=== PATIENT | female | born 1950 | race Caucasian/White ===

== ENCOUNTER 2017-01-17 18:16 | Inpatient (IN) | payer MEDICARE, OTHER ==
[~2017-01-17] VITALS: Ht 170.2 cm; Wt 113.4 kg
[2017-01-17] MEDS ORDERED: SODIUM CHLORIDE FLUSH 10ML SYR IVF ONE (19:00)
[2017-01-17 19:28] LABS: BLOOD UREA NITROGEN 17 mg/dL (7-18)
[2017-01-17] MEDS ORDERED: PARO40TA3 PO (21:27)
[2017-01-17] MEDS ORDERED: LEVO150T PO (21:28)
[2017-01-17] MEDS ORDERED: MAGNESIUM SULFATE PMX 2GM/50ML 50 ML IV ONE (21:30)
[2017-01-17] MEDS ORDERED: HYDROcodone/APAP 5/325 TABLET ONE (21:48)
[2017-01-17] MEDS: HYDROcodone/APAP 5/325 TABLET PO PRN (21:52)
[2017-01-17] MEDS ORDERED: BISACODYL 10 MG SUPP PR PRN (22:00)
[2017-01-17] MEDS ORDERED: ONDANSETRON 2MG/ML, 2ML IVPush PRN (22:00)
[2017-01-17] MEDS ORDERED: POLYETHYLENE GLYCOL 17 GM PACKET PO PRN (22:00)
[2017-01-17] MEDS ORDERED: DOCUSATE 100 MG CAPSULE PO PRN (22:00)
[2017-01-17] MEDS ORDERED: PROMETHAZINE 25 MG/ML, 1ML IM PRN (22:00)
[2017-01-17] MEDS ORDERED: ENALAPRILAT 1.25 MG/ML, 2ML IVPush PRN (22:00)
[2017-01-17 22:39] VITALS: BP 153/80
[2017-01-17 22:40] VITALS: BP 153/80
[2017-01-18 01:00] VITALS: BP 133/73
[2017-01-18] MEDS: HYDROcodone/APAP 5/325 TABLET PO PRN ×5 (01:55→20:11)
[2017-01-18] MEDS: LEVOTHYROXINE 150 MCG TABLET PO SCH (06:00)
[2017-01-18 06:50] LABS: ASPARTATE AMINO TRANSFERASE 22 U/L (15-37); BLOOD UREA NITROGEN 17 mg/dL (7-18)
[2017-01-18 07:59] VITALS: BP 125/68
[2017-01-18] MEDS: ENOXAPARIN 40 MG/0.4 ML SQ SCH (09:09)
[2017-01-18] MEDS: SENNA/DOCUSATE TABLET PO SCH (09:09)
[2017-01-18] MEDS: PAROXETINE 20 MG TABLET PO SCH (09:09)
[2017-01-18 13:27] VITALS: BP 125/70
[2017-01-18] MEDS ORDERED: OMNIPAQUE 350 MG/ML, 150 ML BOTTLE ONE (15:05)
[2017-01-18] MEDS ORDERED: FUROSEMIDE 40 MG/4 ML IV ONE (17:00)
[2017-01-18] MEDS: CEFTRIAXONE PMX 2GM/50ML 50 ML IV SCH (17:32)
[2017-01-18] MEDS: AZITHROMYCIN 500 MG in SODIUM CHLORIDE 0.9% 250 ML IV SCH (18:29)
[2017-01-18 19:09] VITALS: BP 139/76
[2017-01-19] MEDS: HYDROcodone/APAP 5/325 TABLET PO PRN ×6 (00:16→21:46)
[2017-01-19 01:21] VITALS: BP 133/81
[2017-01-19 05:41] LABS: BLOOD UREA NITROGEN 21 mg/dL (7-18)
[2017-01-19] MEDS: LEVOTHYROXINE 150 MCG TABLET PO SCH (05:48)
[2017-01-19 07:17] VITALS: BP 133/77
[2017-01-19] MEDS: PAROXETINE 20 MG TABLET PO SCH (09:12)
[2017-01-19] MEDS: ENOXAPARIN 40 MG/0.4 ML SQ SCH (09:12)
[2017-01-19] MEDS: SENNA/DOCUSATE TABLET PO SCH (09:13)
[2017-01-19 14:35] VITALS: BP 112/69
[2017-01-19] MEDS: CEFTRIAXONE PMX 2GM/50ML 50 ML IV SCH (17:36)
[2017-01-19] MEDS: AZITHROMYCIN 500 MG in SODIUM CHLORIDE 0.9% 250 ML IV SCH (18:22)
[2017-01-19 20:00] VITALS: BP 120/72
[2017-01-20] MEDS: HYDROcodone/APAP 5/325 TABLET PO PRN ×5 (01:52→19:55)
[2017-01-20 02:00] VITALS: BP 133/82
[2017-01-20 06:03] LABS: BLOOD UREA NITROGEN 25 mg/dL (7-18)
[2017-01-20] MEDS: LEVOTHYROXINE 150 MCG TABLET PO SCH (06:15)
[2017-01-20 06:47] LABS: ANISOCYTOSIS 1+
[2017-01-20 06:48] LABS: GIANT PLATELETS 1+; LARGE PLATELETS 1+
[2017-01-20 07:45] VITALS: BP 120/61
[2017-01-20] MEDS: PAROXETINE 20 MG TABLET PO SCH (08:35)
[2017-01-20] MEDS: SENNA/DOCUSATE TABLET PO SCH (08:35)
[2017-01-20] MEDS: ENOXAPARIN 40 MG/0.4 ML SQ SCH (10:09)
[2017-01-20 12:35] VITALS: BP 119/61
[2017-01-20] MEDS: CEFTRIAXONE PMX 2GM/50ML 50 ML IV SCH (16:55)
[2017-01-20] MEDS: AZITHROMYCIN 500 MG in SODIUM CHLORIDE 0.9% 250 ML IV SCH (18:08)
[2017-01-20 19:49] VITALS: BP 130/78
[2017-01-21] MEDS: HYDROcodone/APAP 5/325 TABLET PO PRN ×5 (00:33→21:14)
[2017-01-21 00:49] VITALS: BP 143/78
[2017-01-21] MEDS: LEVOTHYROXINE 150 MCG TABLET PO SCH (06:07)
[2017-01-21 06:55] VITALS: BP 122/70
[2017-01-21] MEDS: PAROXETINE 20 MG TABLET PO SCH (09:09)
[2017-01-21] MEDS: SENNA/DOCUSATE TABLET PO SCH (09:09)
[2017-01-21] MEDS: ENOXAPARIN 40 MG/0.4 ML SQ SCH (09:09)
[2017-01-21 12:42] VITALS: BP 103/60
[2017-01-21] MEDS: CEFTRIAXONE PMX 2GM/50ML 50 ML IV SCH (16:16)
[2017-01-21] MEDS: AZITHROMYCIN 500 MG in SODIUM CHLORIDE 0.9% 250 ML IV SCH (18:06)
[2017-01-21] MEDS ORDERED: POLYETHYLENE GLYCOL 17 GM PACKET PO PRN (19:30)
[2017-01-21] MEDS ORDERED: DOCUSATE 100 MG CAPSULE PO PRN (19:30)
[2017-01-21] MEDS ORDERED: BISACODYL 10 MG SUPP PR PRN (19:30)
[2017-01-21 19:48] VITALS: BP 111/69
[2017-01-22 00:20] VITALS: BP 128/75
[2017-01-22] MEDS: HYDROcodone/APAP 5/325 TABLET PO PRN ×4 (06:08→22:44)
[2017-01-22] MEDS: LEVOTHYROXINE 150 MCG TABLET PO SCH (06:08)
[2017-01-22] MEDS: POTASSIUM CHLORIDE 10 MEQ TABLET.ER PO SCH (09:56)
[2017-01-22] MEDS: SENNA/DOCUSATE TABLET PO SCH (09:57)
[2017-01-22] MEDS: FUROSEMIDE 20 MG TABLET PO SCH (09:57)
[2017-01-22] MEDS: PAROXETINE 20 MG TABLET PO SCH (09:57)
[2017-01-22] MEDS: ENOXAPARIN 40 MG/0.4 ML SQ SCH (09:58)
[2017-01-22 12:26] VITALS: BP 129/77
[2017-01-22] MEDS: CEFTRIAXONE PMX 2GM/50ML 50 ML IV SCH (17:29)
[2017-01-22] MEDS: AZITHROMYCIN 500 MG in SODIUM CHLORIDE 0.9% 250 ML IV SCH (18:15)
[2017-01-22 19:05] VITALS: BP 107/61
[2017-01-23 01:00] VITALS: BP 120/74
[2017-01-23] MEDS: HYDROcodone/APAP 5/325 TABLET PO PRN ×4 (05:09→23:32)
[2017-01-23] MEDS: LEVOTHYROXINE 150 MCG TABLET PO SCH (05:09)
[2017-01-23 05:49] LABS: BLOOD UREA NITROGEN 12 mg/dL (7-18)
[2017-01-23 07:10] VITALS: BP 151/85
[2017-01-23] MEDS: SENNA/DOCUSATE TABLET PO SCH (08:14)
[2017-01-23] MEDS: FUROSEMIDE 20 MG TABLET PO SCH (08:14)
[2017-01-23] MEDS: POTASSIUM CHLORIDE 10 MEQ TABLET.ER PO SCH (08:14)
[2017-01-23] MEDS: PAROXETINE 20 MG TABLET PO SCH (08:14)
[2017-01-23] MEDS: ENOXAPARIN 40 MG/0.4 ML SQ SCH (10:00)
[2017-01-23 12:38] VITALS: BP 121/77
[2017-01-23] MEDS: CEFTRIAXONE PMX 2GM/50ML 50 ML IV SCH (17:25)
[2017-01-23] MEDS: AZITHROMYCIN 500 MG in SODIUM CHLORIDE 0.9% 250 ML IV SCH (18:17)
[2017-01-23 19:10] VITALS: BP 117/73
[2017-01-24 01:00] VITALS: BP 137/76
[2017-01-24] MEDS: HYDROcodone/APAP 5/325 TABLET PO PRN ×2 (05:34→10:29)
[2017-01-24] MEDS: LEVOTHYROXINE 150 MCG TABLET PO SCH (05:34)
[2017-01-24 07:32] VITALS: BP 127/72
[2017-01-24] MEDS ORDERED: LACT1CAP24 PO (07:39)
[2017-01-24] MEDS ORDERED: POTA10TA5 PO (07:39)
[2017-01-24] MEDS ORDERED: CEFD300C37 PO (07:39)
[2017-01-24] MEDS ORDERED: HYDR-3240 PO (07:39)
[2017-01-24] MEDS ORDERED: POLY17PO5 PO (07:39)
[2017-01-24] MEDS ORDERED: AZIT500T PO (07:39)
[2017-01-24] MEDS ORDERED: FURO20TA3 PO (07:39)
[2017-01-24] MEDS ORDERED: ALPR0.25 PO (07:45)
[2017-01-24] MEDS: FUROSEMIDE 20 MG TABLET PO SCH (09:00)
[2017-01-24] MEDS: SENNA/DOCUSATE TABLET PO SCH (09:48)
[2017-01-24] MEDS: POTASSIUM CHLORIDE 10 MEQ TABLET.ER PO SCH (09:48)
[2017-01-24] MEDS: PAROXETINE 20 MG TABLET PO SCH (09:49)
[2017-01-24] MEDS: ENOXAPARIN 40 MG/0.4 ML SQ SCH (10:00)
== END 2017-01-24 11:30 | disposition home or self-care (01) | DRG 871 ==
LOC: ED 20:22 → EDIP 21:12 → 4EST 22:21 → DCLOUNGE 01-24 10:41
PROVIDERS: ADMIT Internal Medicine; ATTEND Internal Medicine
DX: A41.9 Sepsis, unspecified organism (principal); J18.9 Pneumonia, unspecified organism; I50.33 Acute on chronic diastolic (congestive) heart failure; J96.01 Acute respiratory failure with hypoxia; E03.9 Hypothyroidism, unspecified; F32.9 Major depressive disorder, single episode, unspecified; I11.0 Hypertensive heart disease with heart failure; F41.9 Anxiety disorder, unspecified; G56.81 Other specified mononeuropathies of right upper limb; I45.81 Long QT syndrome; Z90.722 Acquired absence of ovaries, bilateral; G58.8 Other specified mononeuropathies
CPT/HCPCS: 36415; 71010; 71275; 80048; 80053; 81003; 83735; 83880; 84443; 85025; 87040; 93005; 93306; 99285; J0456; J0696; J1650; J1940; Q9967; J3475; J7050

== ENCOUNTER 2018-01-29 13:39 | Inpatient (IN) | payer MEDICARE, OTHER ==
[~2018-01-29] VITALS: Ht 171.4 cm; Wt 137.8 kg
[~2018-01-29 13:39] MED LIST: ALPR0.25 PO; AZIT500T PO; CEFD300C37 PO; FURO20TA3 PO; HYDR-3240 PO; LACT1CAP24 PO; LEVO150T PO; PARO40TA3 PO; POLY17PO5 PO; POTA10TA5 PO
[2018-01-29] MEDS ORDERED: SODIUM CHLORIDE 0.9% 1,000ML IVBOLUS ONE ×3 (14:30→23:30)
[2018-01-29 14:32] LABS: ALBUMIN 3.7 g/dL (3.4-5.0); ANION GAP 11 mmol/L (5-15); CALCIUM 8.7 mg/dL (8.5-10.1); CHLORIDE 105 mmol/L (98-107); CREATININE 2.96 mg/dL (0.55-1.02)
[2018-01-29 14:36] LABS: TROPONIN I < 0.015 ng/mL (0.000-0.045)
[2018-01-29 14:37] LABS: INTERNATIONAL NORMALIZED RATIO 1.88 (0.93-1.1); PROTHROMBIN TIME 19.3 Seconds (9.6-11.5)
[2018-01-29] MEDS ORDERED: AMIO200T42 PO (15:47)
[2018-01-29] MEDS ORDERED: LEVO175T2 PO (15:47)
[2018-01-29] MEDS ORDERED: LOSA25TA5 PO (15:47)
[2018-01-29] MEDS ORDERED: PARO20TA98 PO (15:47)
[2018-01-29] MEDS ORDERED: OXYM15SP8 NAS (15:47)
[2018-01-29] MEDS ORDERED: APIX5TAB PO (16:00)
[2018-01-29] MEDS ORDERED: METO100T5 PO (16:00)
[2018-01-29] MEDS ORDERED: VANC125C2 PO (16:00)
[2018-01-29 16:04] LABS: MEAN CORPUSCULAR HEMOGLOBIN 26.9 pg (27.0-34.8); MEAN CORPUSCULAR HGB CONC 32.2 g/dL (32.4-35.8); MEAN CORPUSCULAR VOLUME 83.4 fL (80-100); RED BLOOD COUNT 3.25 x10^6/uL (3.82-5.3); RED CELL DISTRIBUTION WIDTH 23.6 % (9.6-15.2)
[2018-01-29] MEDS ORDERED: HYDR25TA11 PO (16:04)
[2018-01-29 16:06] LABS: MD YES
[2018-01-29 16:13] LABS: BAND#(MANUAL) 0.36 x10^3/uL; BANDS%(MANUAL) 2 % (0-7); EOS#(MANUAL) 0.36 x10^3/uL (0.0-0.4); EOS% (MANUAL) 2 % (1-7); SEG#(MANUAL) 15.48 x10^3/uL (1.8-6.8); SEGS% (MANUAL) 86 % (42-75)
[2018-01-29 16:19] LABS: LYMPHS% (MANUAL) 5 % (22-44)
[2018-01-29] MEDS ORDERED: DOPAMINE/D5W PMX 250 ML IV PRN ×2 (16:20→17:00)
[2018-01-29 16:22] LABS: ANISOCYTOSIS 1+; HYPOCHROMIA 1+; MICROCYTOSIS 1+; OVALOCYTES 1+; POLYCHROMASIA 1+
[2018-01-29 16:23] LABS: ACANTHOCYTES 1+; TOXIC GRAN 1+
[2018-01-29 16:27] LABS: MEAN PLATELET VOLUME 14.5 fL (7.4-10.4); PLATELET COUNT 177 x10^3/uL (130-400)
[2018-01-29 16:28] LABS: <PLATELET ESTIMATE> INCREASED; GIANT PLATELETS 1+; LARGE PLATELETS 1+
[2018-01-29 16:29] LABS: METAMYELOCYTES# (MANUAL) 0.18 x10^3/uL (0-0); METAMYELOCYTES% (MANUAL) 1 % (0-1); MONOS#(MANUAL) 0.72 x10^3/uL (0.3-2.7); MONOS% (MANUAL) 4 % (2-9)
[2018-01-29] MEDS ORDERED: SODIUM CHLORIDE FLUSH 10ML SYR IVF ONE (16:30)
[2018-01-29] MEDS ORDERED: MICROFIBRILLAR COLLAGEN 1 GM TP ONE (16:56)
[2018-01-29] MEDS ORDERED: MICROFIBRILLAR COLLAGEN 0.5GM/PACK TP ONE (16:59)
[2018-01-29] MEDS ORDERED: DOCUSATE 100 MG CAPSULE PO PRN (17:00)
[2018-01-29] MEDS ORDERED: ONDANSETRON ODT 4 MG PO PRN (17:00)
[2018-01-29] MEDS ORDERED: POLYETHYLENE GLYCOL 17 GM PACKET PO PRN (17:00)
[2018-01-29] MEDS ORDERED: ACETAMINOPHEN 325 MG TABLET PO PRN (17:00)
[2018-01-29] MEDS ORDERED: PANTOPRAZOLE 40 MG IV IVPush ONE (17:30)
[2018-01-29] MEDS ORDERED: ANTI INHIBITOR COAGULANT COMP IVPush ONE (18:30)
[2018-01-29 20:31] VITALS: BP 90/32
[2018-01-29] MEDS: SODIUM BICARBONATE 8.4% 100 MEQ in SODIUM CHLORIDE 0.45% 1,000 ML IV SCH (20:49)
[2018-01-29] MEDS: CEFTRIAXONE 1,000 MG in SODIUM CHLORIDE 0.9% 50 ML IV SCH (21:04)
[2018-01-29] MEDS: PANTOPRAZOLE 40 MG IV IVPush SCH (21:04)
[2018-01-30 01:43] LABS: ANION GAP 9 mmol/L (5-15); CALCIUM 8.3 mg/dL (8.5-10.1); CHLORIDE 108 mmol/L (98-107); CREATININE 2.84 mg/dL (0.55-1.02)
[2018-01-30 04:00] VITALS: BP 96/52
[2018-01-30 04:18] LABS: MEAN CORPUSCULAR HEMOGLOBIN 26.8 pg (27.0-34.8); MEAN CORPUSCULAR HGB CONC 32.2 g/dL (32.4-35.8); MEAN CORPUSCULAR VOLUME 83.3 fL (80-100); MEAN PLATELET VOLUME 10.9 fL (7.4-10.4); PLATELET COUNT 136 x10^3/uL (130-400); RED BLOOD COUNT 3.06 x10^6/uL (3.82-5.3); RED CELL DISTRIBUTION WIDTH 23.3 % (9.6-15.2)
[2018-01-30 04:27] LABS: ALANINE AMINOTRANSFERASE 20 U/L (12-78); ALBUMIN 3.5 g/dL (3.4-5.0); ANION GAP 10 mmol/L (5-15); CALCIUM 8.3 mg/dL (8.5-10.1); CHLORIDE 107 mmol/L (98-107)
[2018-01-30 04:30] LABS: ALKALINE PHOSPHATASE 71 U/L (45-117); CREATININE 2.89 mg/dL (0.55-1.02); TOTAL PROTEIN 5.8 g/dL (6.4-8.2)
[2018-01-30] MEDS: SODIUM BICARBONATE 8.4% 100 MEQ in SODIUM CHLORIDE 0.45% 1,000 ML IV SCH (04:38)
[2018-01-30 04:56] LABS: BASOPHILS # (AUTO) 0.15 x10^3/uL (0-0.1); BASOPHILS % (AUTO) 1 % (0-1); EOSINOPHILS # (AUTO) 0.03 x10^3/uL (0-0.4); EOSINOPHILS % (AUTO) 0 % (1-7); LYMPHOCYTES # (AUTO) 0.57 x10^3/uL (1-3.4); LYMPHOCYTES % (AUTO) 3 % (22-44); MD SCAN; MONOCYTES # (AUTO) 1.71 x10^3/uL (0.2-0.8); MONOCYTES % (AUTO) 10 % (2-9); NEUTROPHILS # (AUTO) 15.29 x10^3/uL (1.8-6.8); NEUTROPHILS % (AUTO) 86 % (42-75)
[2018-01-30] MEDS: LEVOTHYROXINE 175 MCG TABLET PO SCH (05:27)
[2018-01-30] MEDS: PAROXETINE 20 MG TABLET PO SCH (10:37)
[2018-01-30] MEDS: PANTOPRAZOLE 40 MG IV IVPush SCH ×2 (10:37→21:06)
[2018-01-30 11:27] LABS: CULTURE INDICATED? YES; MICROSCOPIC INDICATED
[2018-01-30 11:29] LABS: CHLORIDE,URINE RANDOM 36 mmol/L; POTASSIUM,URINE RANDOM 44 mmol/L; SODIUM,URINE RANDOM 37 mmol/L
[2018-01-30 11:51] LABS: CLOSTRIDIUM DIFFICILE ANTIGEN NEGATIVE; CLOSTRIDIUM DIFFICILE TOXIN NEGATIVE (Negative)
[2018-01-30] MEDS: SODIUM BICARBONATE 8.4% 75 MEQ in SODIUM CHLORIDE 0.45% 1,000 ML IV SCH ×2 (14:39→22:18)
[2018-01-30] MEDS: ERGOCALCIFEROL 50,000 UNIT CAPSULE PO SCH (16:51)
[2018-01-30] MEDS: CEFTRIAXONE 1,000 MG in SODIUM CHLORIDE 0.9% 50 ML IV SCH (16:51)
[2018-01-30] MEDS ORDERED: DIAZEPAM 5 MG/ML, 2ML IV ONE (18:00)
[2018-01-30] MEDS: VANCOMYCIN 50 MG/ML ORAL SUSP PO SCH (21:06)
[2018-01-31] MEDS: VANCOMYCIN 50 MG/ML ORAL SUSP PO SCH ×4 (03:57→20:11)
[2018-01-31 04:51] LABS: ALANINE AMINOTRANSFERASE 22 U/L (12-78); ALBUMIN 3.3 g/dL (3.4-5.0); ANION GAP 10 mmol/L (5-15); CALCIUM 7.9 mg/dL (8.5-10.1); CHLORIDE 105 mmol/L (98-107); CREATININE 2.93 mg/dL (0.55-1.02)
[2018-01-31 04:53] LABS: ALKALINE PHOSPHATASE 66 U/L (45-117); BILIRUBIN,TOTAL 2.7 mg/dL (0.2-1.0); TOTAL PROTEIN 5.9 g/dL (6.4-8.2)
[2018-01-31 05:31] LABS: MEAN CORPUSCULAR HEMOGLOBIN 26.9 pg (27.0-34.8); MEAN CORPUSCULAR HGB CONC 32.7 g/dL (32.4-35.8); MEAN CORPUSCULAR VOLUME 82.2 fL (80-100); MEAN PLATELET VOLUME 10.7 fL (7.4-10.4); PLATELET COUNT 135 x10^3/uL (130-400); RED BLOOD COUNT 2.92 x10^6/uL (3.82-5.3); RED CELL DISTRIBUTION WIDTH 24.3 % (9.6-15.2)
[2018-01-31 05:36] LABS: BASOPHILS # (AUTO) 0.09 x10^3/uL (0-0.1); BASOPHILS % (AUTO) 1 % (0-1); EOSINOPHILS # (AUTO) 0.01 x10^3/uL (0-0.4); EOSINOPHILS % (AUTO) 0 % (1-7); LYMPHOCYTES # (AUTO) 0.59 x10^3/uL (1-3.4); LYMPHOCYTES % (AUTO) 4 % (22-44); MD SCAN; MONOCYTES % (AUTO) 10 % (2-9); NEUTROPHILS # (AUTO) 12.55 x10^3/uL (1.8-6.8); NEUTROPHILS % (AUTO) 86 % (42-75)
[2018-01-31 05:40] VITALS: BP 101/44
[2018-01-31] MEDS: SODIUM BICARBONATE 8.4% 75 MEQ in SODIUM CHLORIDE 0.45% 1,000 ML IV SCH (06:11)
[2018-01-31] MEDS: LEVOTHYROXINE 175 MCG TABLET PO SCH (06:23)
[2018-01-31] MEDS: LACTULOSE 20 GM/30 ML UDC PO SCH (08:38)
[2018-01-31] MEDS: PAROXETINE 20 MG TABLET PO SCH (08:38)
[2018-01-31] MEDS: PANTOPRAZOLE 40 MG IV IVPush SCH ×2 (08:38→20:11)
[2018-01-31] MEDS: SODIUM CHLORIDE 0.9% 1,000 ML IV SCH ×2 (10:30→20:37)
[2018-01-31] MEDS: CEFTRIAXONE 1,000 MG in SODIUM CHLORIDE 0.9% 50 ML IV SCH (17:11)
[2018-01-31 19:47] VITALS: BP 95/60
[2018-02-01 00:09] VITALS: BP 118/74
[2018-02-01] MEDS: VANCOMYCIN 50 MG/ML ORAL SUSP PO SCH ×4 (02:38→21:43)
[2018-02-01 05:08] LABS: ANION GAP 12 mmol/L (5-15); CALCIUM 8.3 mg/dL (8.5-10.1); CHLORIDE 107 mmol/L (98-107); CREATININE 2.77 mg/dL (0.55-1.02)
[2018-02-01 05:36] LABS: BASOPHILS # (AUTO) 0.17 x10^3/uL (0-0.1); BASOPHILS % (AUTO) 1 % (0-1); EOSINOPHILS # (AUTO) 0.01 x10^3/uL (0-0.4); EOSINOPHILS % (AUTO) 0 % (1-7); LYMPHOCYTES # (AUTO) 0.57 x10^3/uL (1-3.4); LYMPHOCYTES % (AUTO) 5 % (22-44); MD SCAN; MEAN CORPUSCULAR HEMOGLOBIN 27.4 pg (27.0-34.8); MEAN CORPUSCULAR HGB CONC 32.7 g/dL (32.4-35.8); MEAN CORPUSCULAR VOLUME 83.9 fL (80-100); MEAN PLATELET VOLUME 13.5 fL (7.4-10.4); MONOCYTES # (AUTO) 1.37 x10^3/uL (0.2-0.8); MONOCYTES % (AUTO) 11 % (2-9); NEUTROPHILS # (AUTO) 10.38 x10^3/uL (1.8-6.8); NEUTROPHILS % (AUTO) 83 % (42-75); PLATELET COUNT 170 x10^3/uL (130-400); RED BLOOD COUNT 2.99 x10^6/uL (3.82-5.3)
[2018-02-01 06:45] VITALS: BP 139/70
[2018-02-01] MEDS: LEVOTHYROXINE 175 MCG TABLET PO SCH (06:46)
[2018-02-01] MEDS: SODIUM CHLORIDE 0.9% 1,000 ML IV SCH ×2 (06:47→10:30)
[2018-02-01] MEDS ORDERED: FLUCONAZOLE 200 MG/100 ML 100 ML IV SCH (08:00)
[2018-02-01] MEDS: LACTULOSE 20 GM/30 ML UDC PO SCH (09:00)
[2018-02-01] MEDS: PAROXETINE 20 MG TABLET PO SCH (09:01)
[2018-02-01 18:55] VITALS: BP 144/78
[2018-02-01] MEDS: APIXABAN 5 MG TABLET PO SCH (21:43)
[2018-02-02 01:09] VITALS: BP 114/73
[2018-02-02] MEDS: SODIUM CHLORIDE 0.9% 1,000 ML IV SCH ×2 (01:09→20:47)
[2018-02-02] MEDS: VANCOMYCIN 50 MG/ML ORAL SUSP PO SCH ×4 (02:31→20:24)
[2018-02-02] MEDS ORDERED: LEVOTHYROXINE 125 MCG TABLET ONE (05:06)
[2018-02-02] MEDS: LEVOTHYROXINE 175 MCG TABLET PO SCH (05:12)
[2018-02-02 05:20] VITALS: BP 115/56
[2018-02-02 08:06] VITALS: BP 117/75
[2018-02-02] MEDS: PAROXETINE 20 MG TABLET PO SCH (10:03)
[2018-02-02] MEDS: APIXABAN 5 MG TABLET PO SCH ×2 (10:03→20:23)
[2018-02-02 13:00] VITALS: BP 121/65
[2018-02-02 18:41] VITALS: BP 104/67
[2018-02-02] MEDS: FLUCONAZOLE 100MG/50ML 100 MG in BAG 1 EACH IVPB SCH (20:24)
[2018-02-03 00:36] VITALS: BP 111/69
[2018-02-03] MEDS: VANCOMYCIN 50 MG/ML ORAL SUSP PO SCH ×4 (02:17→21:02)
[2018-02-03] MEDS: LEVOTHYROXINE 175 MCG TABLET PO SCH (05:31)
[2018-02-03 05:35] VITALS: BP 116/69
[2018-02-03 06:35] VITALS: BP 148/82
[2018-02-03] MEDS: APIXABAN 5 MG TABLET PO SCH ×2 (08:51→21:02)
[2018-02-03] MEDS: PAROXETINE 20 MG TABLET PO SCH (08:51)
[2018-02-03 12:00] VITALS: BP 131/85
[2018-02-03] MEDS: FLUCONAZOLE 100MG/50ML 100 MG in BAG 1 EACH IVPB SCH (21:02)
[2018-02-03] MEDS: SODIUM CHLORIDE 0.9% 1,000 ML IV SCH (21:05)
[2018-02-03 21:06] VITALS: BP 123/73
[2018-02-04 00:50] VITALS: BP 124/67
[2018-02-04] MEDS: LEVOTHYROXINE 175 MCG TABLET PO SCH (04:24)
[2018-02-04] MEDS: VANCOMYCIN 50 MG/ML ORAL SUSP PO SCH ×4 (04:24→21:02)
[2018-02-04 04:55] LABS: ANION GAP 5 mmol/L (5-15); CALCIUM 8.7 mg/dL (8.5-10.1); CHLORIDE 112 mmol/L (98-107); CREATININE 1.28 mg/dL (0.55-1.02)
[2018-02-04 06:45] VITALS: BP 135/83
[2018-02-04] MEDS: APIXABAN 5 MG TABLET PO SCH ×2 (08:24→21:02)
[2018-02-04] MEDS: PAROXETINE 20 MG TABLET PO SCH (08:24)
[2018-02-04 12:45] VITALS: BP 127/76
[2018-02-04] MEDS ORDERED: MAGNESIUM SULFATE PMX 2GM/50ML 50 ML IV ONE (13:00)
[2018-02-04 18:35] VITALS: BP 139/76
[2018-02-04] MEDS ORDERED: FLUCONAZOLE 200 MG/100 ML 100 ML IVPB SCH (21:00)
[2018-02-05 00:22] VITALS: BP 132/77
[2018-02-05] MEDS: VANCOMYCIN 50 MG/ML ORAL SUSP PO SCH ×2 (04:14→08:29)
[2018-02-05] MEDS: LEVOTHYROXINE 175 MCG TABLET PO SCH (04:14)
[2018-02-05 05:37] LABS: ALANINE AMINOTRANSFERASE 15 U/L (12-78); ALBUMIN 3.5 g/dL (3.4-5.0); ANION GAP 6 mmol/L (5-15); CALCIUM 8.8 mg/dL (8.5-10.1); CHLORIDE 113 mmol/L (98-107); CREATININE 0.99 mg/dL (0.55-1.02)
[2018-02-05 05:39] LABS: ALKALINE PHOSPHATASE 81 U/L (45-117); BILIRUBIN,TOTAL 2.5 mg/dL (0.2-1.0); TOTAL PROTEIN 6.1 g/dL (6.4-8.2)
[2018-02-05 06:11] LABS: BASOPHILS # (AUTO) 0.32 x10^3/uL (0-0.1); BASOPHILS % (AUTO) 5 % (0-1); EOSINOPHILS % (AUTO) 0 % (1-7); LYMPHOCYTES # (AUTO) 0.55 x10^3/uL (1-3.4); LYMPHOCYTES % (AUTO) 8 % (22-44); MD SCAN; MEAN CORPUSCULAR HEMOGLOBIN 27.7 pg (27.0-34.8); MEAN CORPUSCULAR VOLUME 83.8 fL (80-100); MEAN PLATELET VOLUME 12.1 fL (7.4-10.4); MONOCYTES # (AUTO) 0.74 x10^3/uL (0.2-0.8); MONOCYTES % (AUTO) 10 % (2-9); NEUTROPHILS # (AUTO) 5.54 x10^3/uL (1.8-6.8); NEUTROPHILS % (AUTO) 78 % (42-75); PLATELET COUNT 144 x10^3/uL (130-400)
[2018-02-05 06:30] VITALS: BP 111/73
[2018-02-05 06:40] VITALS: BP 137/89
[2018-02-05] MEDS: APIXABAN 5 MG TABLET PO SCH ×2 (08:29→20:47)
[2018-02-05] MEDS: PAROXETINE 20 MG TABLET PO SCH (08:29)
[2018-02-05 12:10] VITALS: BP 141/83
[2018-02-05] MEDS ORDERED: FLUC200T PO (14:05)
[2018-02-05] MEDS ORDERED: ACET325T14 PO (14:05)
[2018-02-05] MEDS ORDERED: ERGO500017 PO (14:05)
[2018-02-05] MEDS ORDERED: DOCU-131 PO (14:05)
[2018-02-05 18:28] VITALS: BP 154/54
[2018-02-06 01:08] VITALS: BP 126/74
[2018-02-06] MEDS ORDERED: VANCOMYCIN PER PHARMACY MC PRN (01:30)
[2018-02-06] MEDS ORDERED: FUROSEMIDE 20 MG/2 ML IV ONE (01:30)
[2018-02-06] MEDS ORDERED: PHARMACOKINETIC MONITORING MC PRN (02:00)
[2018-02-06] MEDS ORDERED: PHARMACOKINETIC CONSULTATION MC ONE (02:00)
[2018-02-06] MEDS: PIPERACILLIN/TAZO/PMX 3.375GM 50 ML IV SCH ×4 (02:09→21:04)
[2018-02-06] MEDS: VANCOMYCIN 2,100 MG in SODIUM CHLORIDE 0.9% 500 ML IV SCH (02:58)
[2018-02-06] MEDS: LEVOTHYROXINE 175 MCG TABLET PO SCH (07:22)
[2018-02-06 08:26] LABS: ALBUMIN 3.7 g/dL (3.4-5.0); ANION GAP 8 mmol/L (5-15); CALCIUM 8.7 mg/dL (8.5-10.1); CHLORIDE 110 mmol/L (98-107); CREATININE 0.96 mg/dL (0.55-1.02)
[2018-02-06 08:30] VITALS: BP 145/81
[2018-02-06 08:49] LABS: MEAN CORPUSCULAR HEMOGLOBIN 26.7 pg (27.0-34.8); MEAN CORPUSCULAR HGB CONC 31.9 g/dL (32.4-35.8); MEAN CORPUSCULAR VOLUME 83.6 fL (80-100); MEAN PLATELET VOLUME 10.1 fL (7.4-10.4); PLATELET COUNT 165 x10^3/uL (130-400); RED BLOOD COUNT 3.23 x10^6/uL (3.82-5.3); RED CELL DISTRIBUTION WIDTH 24.4 % (9.6-15.2)
[2018-02-06 08:50] LABS: MD YES
[2018-02-06] MEDS: APIXABAN 5 MG TABLET PO SCH ×2 (08:50→21:04)
[2018-02-06] MEDS: PAROXETINE 20 MG TABLET PO SCH (08:50)
[2018-02-06] MEDS: FLUCONAZOLE 200 MG TABLET PO SCH (08:50)
[2018-02-06 08:52] LABS: BANDS%(MANUAL) 1 % (0-7); BASOS#(MANUAL) 0.19 x10^3/uL (0-0.1); BASOS% (MANUAL) 2 % (0-1); EOS#(MANUAL) 0.29 x10^3/uL (0.0-0.4); EOS% (MANUAL) 3 % (1-7); LYMPH#(MANUAL) 0.29 x10^3/uL (1-3.4); LYMPHS% (MANUAL) 3 % (22-44); MONOS#(MANUAL) 0.67 x10^3/uL (0.3-2.7); MONOS% (MANUAL) 7 % (2-9); SEG#(MANUAL) 7.98 x10^3/uL (1.8-6.8); SEGS% (MANUAL) 84 % (42-75)
[2018-02-06 08:53] LABS: <PLATELET ESTIMATE> ADEQUATE; ANISOCYTOSIS 1+; GIANT PLATELETS 1+; LARGE PLATELETS 1+
[2018-02-06] MEDS ORDERED: FUROSEMIDE 40 MG TABLET PO SCH (09:30)
[2018-02-06] MEDS ORDERED: FUROSEMIDE 40 MG/4 ML IV ONE (10:30)
[2018-02-06 13:17] VITALS: BP 147/87
[2018-02-06] MEDS: LACTOBACILLUS CHEW TABLET PO SCH ×2 (15:43→21:04)
[2018-02-06] MEDS: ERGOCALCIFEROL 50,000 UNIT CAPSULE PO SCH (15:43)
[2018-02-06 18:53] VITALS: BP 146/86
[2018-02-07 00:15] VITALS: BP 152/77
[2018-02-07] MEDS: PIPERACILLIN/TAZO/PMX 3.375GM 50 ML IV SCH ×4 (02:53→21:34)
[2018-02-07] MEDS: VANCOMYCIN 2,100 MG in SODIUM CHLORIDE 0.9% 500 ML IV SCH (02:54)
[2018-02-07 05:12] LABS: ANION GAP 7 mmol/L (5-15); CALCIUM 8.5 mg/dL (8.5-10.1); CHLORIDE 110 mmol/L (98-107)
[2018-02-07 05:14] LABS: CREATININE 0.82 mg/dL (0.55-1.02)
[2018-02-07 05:17] LABS: BASOPHILS # (AUTO) 0.28 x10^3/uL (0-0.1); BASOPHILS % (AUTO) 3 % (0-1); EOSINOPHILS % (AUTO) 0 % (1-7); LYMPHOCYTES # (AUTO) 0.46 x10^3/uL (1-3.4); LYMPHOCYTES % (AUTO) 5 % (22-44); MD SCAN; MEAN CORPUSCULAR HEMOGLOBIN 27.2 pg (27.0-34.8); MEAN CORPUSCULAR HGB CONC 32.4 g/dL (32.4-35.8); MEAN CORPUSCULAR VOLUME 83.9 fL (80-100); MEAN PLATELET VOLUME 12.3 fL (7.4-10.4); MONOCYTES # (AUTO) 0.84 x10^3/uL (0.2-0.8); MONOCYTES % (AUTO) 10 % (2-9); NEUTROPHILS # (AUTO) 7.11 x10^3/uL (1.8-6.8); NEUTROPHILS % (AUTO) 82 % (42-75); PLATELET COUNT 162 x10^3/uL (130-400); RED BLOOD COUNT 2.94 x10^6/uL (3.82-5.3); RED CELL DISTRIBUTION WIDTH 23.8 % (9.6-15.2)
[2018-02-07] MEDS ORDERED: LEVOTHYROXINE 25 MCG TABLET ONE (05:18)
[2018-02-07] MEDS ORDERED: LEVOTHYROXINE 150 MCG TABLET ONE (05:18)
[2018-02-07] MEDS: LEVOTHYROXINE 175 MCG TABLET PO SCH (05:35)
[2018-02-07 07:20] VITALS: BP 152/91
[2018-02-07] MEDS ORDERED: FUROSEMIDE 40 MG/4 ML IV SCH (08:30)
[2018-02-07] MEDS: APIXABAN 5 MG TABLET PO SCH ×2 (08:58→21:34)
[2018-02-07 09:17] LABS: ALBUMIN 3.5 g/dL (3.4-5.0); TOTAL PROTEIN 6.2 g/dL (6.4-8.2)
[2018-02-07] MEDS: LACTOBACILLUS CHEW TABLET PO SCH ×3 (09:23→21:34)
[2018-02-07] MEDS: FLUCONAZOLE 200 MG TABLET PO SCH (09:23)
[2018-02-07] MEDS: PAROXETINE 20 MG TABLET PO SCH (09:23)
[2018-02-07] MEDS ORDERED: LIDOCAINE-MPF 1%, 2ML ONE (11:18)
[2018-02-07 12:35] VITALS: BP 114/65
[2018-02-07 20:00] VITALS: BP 111/67
[2018-02-08 00:31] VITALS: BP 119/72
[2018-02-08] MEDS: PIPERACILLIN/TAZO/PMX 3.375GM 50 ML IV SCH (03:20)
[2018-02-08] MEDS: VANCOMYCIN 2,100 MG in SODIUM CHLORIDE 0.9% 500 ML IV SCH (04:09)
[2018-02-08] MEDS: LEVOTHYROXINE 175 MCG TABLET PO SCH (05:36)
[2018-02-08 05:42] LABS: CHLORIDE 108 mmol/L (98-107)
[2018-02-08 05:49] LABS: ALANINE AMINOTRANSFERASE 19 U/L (12-78); ALBUMIN 2.9 g/dL (3.4-5.0); ALKALINE PHOSPHATASE 88 U/L (45-117); ANION GAP 7 mmol/L (5-15); CREATININE 0.81 mg/dL (0.55-1.02); TOTAL PROTEIN 5.4 g/dL (6.4-8.2)
[2018-02-08] MEDS ORDERED: FUROSEMIDE 20 MG/2 ML IV SCH (09:00)
[2018-02-08 09:27] VITALS: BP 123/73
[2018-02-08] MEDS: LACTOBACILLUS CHEW TABLET PO SCH ×3 (09:29→22:00)
[2018-02-08] MEDS: FUROSEMIDE 40 MG TABLET PO SCH (09:29)
[2018-02-08] MEDS: APIXABAN 5 MG TABLET PO SCH ×2 (09:29→22:00)
[2018-02-08] MEDS: FLUCONAZOLE 200 MG TABLET PO SCH (09:29)
[2018-02-08] MEDS: PAROXETINE 20 MG TABLET PO SCH (09:29)
[2018-02-08 09:48] LABS: MEAN CORPUSCULAR HEMOGLOBIN 26.7 pg (27.0-34.8); MEAN CORPUSCULAR VOLUME 83.4 fL (80-100); MEAN PLATELET VOLUME 10.7 fL (7.4-10.4); PLATELET COUNT 74 x10^3/uL (130-400); RED BLOOD COUNT 2.84 x10^6/uL (3.82-5.3); RED CELL DISTRIBUTION WIDTH 23.9 % (9.6-15.2)
[2018-02-08 10:04] LABS: MD YES
[2018-02-08 10:05] LABS: LYMPHS% (MANUAL) 10 % (22-44); SEG#(MANUAL) 4.51 x10^3/uL (1.8-6.8); SEGS% (MANUAL) 82 % (42-75)
[2018-02-08 10:06] LABS: ANISOCYTOSIS 2+; EOS#(MANUAL) 0.11 x10^3/uL (0.0-0.4); EOS% (MANUAL) 2 % (1-7); HYPOCHROMIA 1+; MICROCYTOSIS 1+; MONOS#(MANUAL) 0.33 x10^3/uL (0.3-2.7); MONOS% (MANUAL) 6 % (2-9)
[2018-02-08 10:07] LABS: <PLATELET ESTIMATE> DECREASED; <PLT MORPHOLOGY> NORMAL PLT MORPH
[2018-02-08 10:09] LABS: LYMPH#(MANUAL) 0.55 x10^3/uL (1-3.4)
[2018-02-08 14:23] VITALS: BP 146/81
[2018-02-08 19:03] VITALS: BP 124/77
[2018-02-09 03:46] VITALS: BP 116/70
[2018-02-09] MEDS: LEVOTHYROXINE 175 MCG TABLET PO SCH (06:27)
[2018-02-09 07:02] VITALS: BP 132/80
[2018-02-09] MEDS: FUROSEMIDE 40 MG TABLET PO SCH (08:48)
[2018-02-09] MEDS: PAROXETINE 20 MG TABLET PO SCH (08:48)
[2018-02-09] MEDS: MAGNESIUM OXIDE 400 MG TABLET PO SCH (08:48)
[2018-02-09] MEDS: LACTOBACILLUS CHEW TABLET PO SCH ×3 (08:48→20:59)
[2018-02-09] MEDS: FLUCONAZOLE 200 MG TABLET PO SCH (08:48)
[2018-02-09] MEDS: APIXABAN 5 MG TABLET PO SCH ×2 (08:48→20:59)
[2018-02-09 09:37] LABS: MEAN CORPUSCULAR HEMOGLOBIN 26.6 pg (27.0-34.8); MEAN CORPUSCULAR HGB CONC 32.1 g/dL (32.4-35.8); MEAN CORPUSCULAR VOLUME 82.8 fL (80-100); RED CELL DISTRIBUTION WIDTH 24.2 % (9.6-15.2)
[2018-02-09 09:39] LABS: BASOPHILS # (AUTO) 0.34 x10^3/uL (0-0.1); BASOPHILS % (AUTO) 7 % (0-1); EOSINOPHILS # (AUTO) 0.06 x10^3/uL (0-0.4); EOSINOPHILS % (AUTO) 1 % (1-7); LYMPHOCYTES # (AUTO) 0.53 x10^3/uL (1-3.4); LYMPHOCYTES % (AUTO) 11 % (22-44); MONOCYTES # (AUTO) 0.67 x10^3/uL (0.2-0.8); MONOCYTES % (AUTO) 14 % (2-9); NEUTROPHILS # (AUTO) 3.14 x10^3/uL (1.8-6.8); NEUTROPHILS % (AUTO) 66 % (42-75)
[2018-02-09 09:42] LABS: MD SCAN; MEAN PLATELET VOLUME 10.4 fL (7.4-10.4); PLATELET COUNT 62 x10^3/uL (130-400)
[2018-02-09 13:49] VITALS: BP 121/66
[2018-02-09 20:02] VITALS: BP 148/76
[2018-02-10 03:30] VITALS: BP 125/77
[2018-02-10 05:13] LABS: CHLORIDE 106 mmol/L (98-107)
[2018-02-10 05:17] LABS: ALBUMIN 3.2 g/dL (3.4-5.0); ANION GAP 6 mmol/L (5-15); CALCIUM 8.3 mg/dL (8.5-10.1)
[2018-02-10 05:45] LABS: MD YES; MEAN CORPUSCULAR HEMOGLOBIN 27.6 pg (27.0-34.8); MEAN CORPUSCULAR HGB CONC 33.3 g/dL (32.4-35.8); MEAN CORPUSCULAR VOLUME 82.9 fL (80-100); MEAN PLATELET VOLUME 10.6 fL (7.4-10.4); PLATELET COUNT 54 x10^3/uL (130-400); RED BLOOD COUNT 2.94 x10^6/uL (3.82-5.3); RED CELL DISTRIBUTION WIDTH 24.2 % (9.6-15.2)
[2018-02-10 06:25] LABS: ANISOCYTOSIS 2+; BASOS#(MANUAL) 0.21 x10^3/uL (0-0.1); BASOS% (MANUAL) 4 % (0-1); EOS#(MANUAL) 0.21 x10^3/uL (0.0-0.4); EOS% (MANUAL) 4 % (1-7); LYMPH#(MANUAL) 0.52 x10^3/uL (1-3.4); LYMPHS% (MANUAL) 10 % (22-44); METAMYELOCYTES% (MANUAL) 2 % (0-1); MONOS#(MANUAL) 0.21 x10^3/uL (0.3-2.7); MONOS% (MANUAL) 4 % (2-9); SEG#(MANUAL) 3.95 x10^3/uL (1.8-6.8); SEGS% (MANUAL) 76 % (42-75)
[2018-02-10 06:26] LABS: <PLATELET ESTIMATE> DECREASED; <PLT MORPHOLOGY> NORMAL PLT MORPH; MICROCYTOSIS 1+; OVALOCYTES 1+
[2018-02-10] MEDS: LEVOTHYROXINE 175 MCG TABLET PO SCH (07:21)
[2018-02-10 07:22] VITALS: BP 127/70
[2018-02-10] MEDS ORDERED: MAGN400T26 PO (09:32)
[2018-02-10] MEDS: MAGNESIUM OXIDE 400 MG TABLET PO SCH (09:39)
[2018-02-10] MEDS: FUROSEMIDE 40 MG TABLET PO SCH (09:39)
[2018-02-10] MEDS: LACTOBACILLUS CHEW TABLET PO SCH (09:39)
[2018-02-10] MEDS: PAROXETINE 20 MG TABLET PO SCH (09:39)
[2018-02-10] MEDS: APIXABAN 5 MG TABLET PO SCH (09:39)
== END 2018-02-10 12:11 | DRG 871 ==
LOC: ED 16:34 → EDIP 16:35 → ED 16:56 → CCU 18:15 → 5SO 01-31 15:51 → 4WST 02-08 17:43
PROVIDERS: ADMIT Internal Medicine; ATTEND Internal Medicine
PROC: 02H633Z Insertion of Infusion Device into Right Atrium, Percutaneous Approach (ICD-10-PCS; 2018-01-29)
PROC: B244ZZZ Ultrasonography of Right Heart (ICD-10-PCS; 2018-01-29)
PROC: 0T9B70Z Drainage of Bladder with Drainage Device, Via Natural or Artificial Opening (ICD-10-PCS; principal; 2018-01-30)
PROC: 0W993ZZ Drainage of Right Pleural Cavity, Percutaneous Approach (ICD-10-PCS; 2018-02-07)
DX: A41.9 Sepsis, unspecified organism (principal); N17.0 Acute kidney failure with tubular necrosis; G93.40 Encephalopathy, unspecified; J18.9 Pneumonia, unspecified organism; J96.00 Acute respiratory failure, unspecified whether with hypoxia or hypercapnia; E44.1 Mild protein-calorie malnutrition; Z68.42 Body mass index [BMI] 45.0-49.9, adult; B37.49 Other urogenital candidiasis; I50.32 Chronic diastolic (congestive) heart failure; N25.81 Secondary hyperparathyroidism of renal origin; R18.8 Other ascites; D61.818 Other pancytopenia; T82.838A Hemorrhage due to vascular prosthetic devices, implants and grafts, initial encounter; D50.0 Iron deficiency anemia secondary to blood loss (chronic); E03.9 Hypothyroidism, unspecified; E66.01 Morbid (severe) obesity due to excess calories; E83.42 Hypomagnesemia; F32.9 Major depressive disorder, single episode, unspecified; F41.9 Anxiety disorder, unspecified; I11.0 Hypertensive heart disease with heart failure; I27.20 Pulmonary hypertension, unspecified; I48.0 Paroxysmal atrial fibrillation; K80.20 Calculus of gallbladder without cholecystitis without obstruction; Z79.01 Long term (current) use of anticoagulants; E86.1 Hypovolemia; N20.0 Calculus of kidney; Y83.8 Other surgical procedures as the cause of abnormal reaction of the patient, or of later complication, without mention of misadventure at the time of the procedure
CPT/HCPCS: 32555; 36415; 36600; 70450; 71045; 71250; 74176; 76700; 76770; 80048; 80053; 81001; 82040; 82140; 82306; 82436; 82533; 82565; 82570; 82728; 82803; 82945; 83540; 83550; 83605; 83615; 83735; 83880; 83970; 84100; 84133; 84145; 84155; 84157; 84300; 84443; 84484; 84520; 85018; 85025; 85610; 85730; 86850; 86900; 87040; 87070; 87081; 87086; 87106; 87205; 87324; 89051; 93005; 93306; 99291; J0696; J1940; J2543; J3360; J3370; J3490; C9113; J1450; J3475; J7030; J7040